=== PATIENT | female | born 2000 | race Caucasian/White ===

== ENCOUNTER 2025-03-14 21:33 | Emergency (ER) | payer OTHER, SELFPAY ==
[2025-03-14 21:35] VITALS: BP 136/81
[2025-03-14 22:18] VITALS: BP 114/68
[2025-03-14 22:30] VITALS: BMI 18.7
[2025-03-14 22:30] LABS: % Basophils 0.3 % (0-2); % Eosinophils 0.3 % (0-6); % Immature Granulocytes 0.3 % (0-0.5); % Lymphocytes 11.6 % (20.5-51.1); % Monocytes 4.4 % (1.7-9.3); % Neutrophils 83.1 % (42.2-75.2); Absolute Lymphocytes 1.4 10^3/uL (1.2-3.4); Absolute Monocytes 0.5 10^3/uL (0.1-0.6); Absolute Neutrophils 9.8 10^3/uL (1.4-6.5); Hematocrit 39.2 % (37.0-47.0); Hemoglobin 13.6 g/dL (12.0-16.0); Mean Corp Hgb Conc. 34.7 g/dL (33.0-37.0); Mean Corpuscular Hgb 29.5 pg (27.0-31.0); Mean Platelet Volume 9.6 fL (7.4-10.4); Nucleated Red Blood Cells % 0 %; Platelet Count 190 10^3/uL (130-400); Red Blood Cell Count 4.61 10^6/uL (4.20-5.40); Red Cell Dist. Width 12.2 % (11.5-14.5); White Blood Cell Count 11.7 10^3/uL (4.8-10.8)
[2025-03-14 22:37] LABS: HCG, Serum Qualitative Screen Negative
[2025-03-14 22:42] LABS: ALT (SGPT) 19 U/L (0-35); AST (SGOT) 21 U/L (14-36); Albumin 4.8 g/dl (3.5-5.0); Alkaline Phosphatase 51 U/L (38-126); Blood Urea Nitrogen 18 mg/dl (7-17); Calcium 9.4 mg/dl (8.4-10.2); Carbon Dioxide 24 mmol/L (22-30); Chloride 109 mmol/L (98-107); Estimated Creatinine Clearance 100 ml/min; Glucose 99 mg/dl (70-99); Sodium 143 mmol/L (135-145); Total Bilirubin 0.5 mg/dl (0.2-1.3); Total Protein 7.5 g/dl (6.3-8.2); eGFR > 60.00
--- NOTE | 2025-03-14 23:33 | ED.GENMED ---
History of Present Illness
General
Chief Complaint: Fever
Source: patient
Exam Limitations: none
Time Seen by Provider: 03/14/25 22:58
Nursing documentation reviewed up to this point in time: agreed with
History of Present Illness
History of Present Illness:
The patient is a 24-year-old female who complains of waking up with a fever this morning as well as body aches and a sore throat. Patient complains of swollen glands in her neck. Additionally, patient complains of right lower abdominal pain that
she describes as a constant ache and occasionally sharp. Patient reports she has been feeling this right lower abdominal pain for about 3 weeks. Patient also complains of right lower back pain. She denies increased frequency of urination and
burning when she urinates. She denies rash. She reports a mild headache. Patient reports she last took Tylenol many hours ago.
Past History
Past History
ED Past Medical History: None
ED Past Surgical History: None
Social History
Tobacco: Non-smoker
Alcohol: Other
Drug: None
Personal: Other
Living: other
Employment: Other
Family History
Family History: Other
Review of Systems
Review of Systems
Allergies reviewed?: Yes
All Other Systems: ROS reviewed and negative except as documented in HPI and ROS
Constitutional: Reports fever, fatigue and chills
EENT: Reports other (Sore throat)
Respiratory: Reports no symptoms
Cardiac: Reports no symptoms
ABD/GI: Reports abdominal pain and diarrhea
: Reports flank pain
Musculoskeletal: Reports other (Body aches)
Skin: Reports no symptoms
Neurological: Reports headache
Endocrine: Reports no symptoms
Hematologic/Lymphatic: Reports no symptoms
Psychiatric: Reports no symptoms
Phy Exam
Physical Exam
Physical Exam:
Physical Exam
General: No acute distress, nontoxic, flushed
Neck: supple. Mild cervical lymphadenopathy. No meningismus. Mild pharyngeal erythema, pus on left tonsil
Heart: s1/s2 regular rate and rhythm, no murmur. equal radial pulses.
Lungs: no acute respiratory distress. clear bilaterally
Abdomen: Soft, right lower quadrant tenderness. No rebound or guarding. No pulsatile mass, right lower flank tenderness
Neuro: alert and oriented. no focal neurological deficits
Skin: no rash
Psychiatric: well kept. interactive and cooperative
Extremities: no edema. no calf tenderness. negative homans. good distal pulses
Course
Orders/Labs/Results
Orders:
Orders
03/14/25 21:59
Test Result ONCE
03/14/25 22:16
Complete Blood Count/With Diff Urgent
Comprehensive Metabolic Panel Urgent
HCG, Serum Qualitative Screen Urgent
Monotest Urgent
Comment: ADD ON
03/14/25 23:32
0.9% Sodium Chloride 1000 ml [Nss] 1,000 ml IV BOLUS
Acetaminophen [Tylenol] 1,000 mg PO NOW STA
03/14/25 23:33
Add On- LAB Urgent
Tests Added?: monotest
03/14/25 23:34
Iohexol [Omnipaque] See Protocol PO NOW STA
03/14/25 23:57
COVID-19 Antigen Urgent
Source: Nasal Swab
Urinalysis Reflex To Culture Urgent
Date Specimen was Collected: 03/14/25
Time Specimen was Collected: 23:50
Influenza A+B Rapid Molecular Urgent
HERIBERTO Source: Nasal Swab
Specimen Description:
Rapid Strep Group A Urgent
HERIBERTO Source: Throat/Pharynx
Specimen Description:
Date Specimen was Collected: 03/14/25
Time Specimen was Collected: 23:45
03/15/25 00:04
CT Abd/pelvis W Iv Cont Urgent
Comment:
Reason For Exam: RLQ pain, fever
03/15/25 01:47
Penicillin V Potassium [Pen Vk] 500 mg PO NOW STA
Abnormal Lab Results
03/14/25
22:16
WBC 11.7 H 10^3/uL
(4.8-10.8)
Absolute Neuts (auto) 9.8 H 10^3/uL
(1.4-6.5)
Neutrophils % 83.1 H %
(42.2-75.2)
Lymphocytes % 11.6 L %
(20.5-51.1)
Chloride 109 H mmol/L
(98-107)
BUN 18 H mg/dl
(7-17)
03/14/25 22:16
03/14/25 22:16
Vital Signs
Initial and Last Documented VS:
Initial Vital Signs
Temp Pulse Resp BP Pulse Ox
99.2 F 104 20 136/81 99
03/14/25 21:35 03/14/25 21:35 03/14/25 21:35 03/14/25 21:35 03/14/25 21:35
Last Documented Vital Signs
Temp Pulse Resp BP Pulse Ox
99.2 F 102 16 114/68 100
03/14/25 21:35 03/14/25 22:18 03/14/25 22:18 03/14/25 22:18 03/14/25 22:18
MDM/Problems Addressed
Differential Diagnosis Includes:
Acute mononucleosis, acute appendicitis, ovarian cyst, strep pharyngitis
MDM/Problems Addressed:
Patient presents with acute fever, sore throat, body aches, right lower flank pain and right lower abdominal pain
*Radiology
Radiology exam reviewed: radiology read reviewed
*Pulse Oximetry
Patient hypoxic: no
Comment: Pulse ox is 99% on room air
*EKG
Interpreted by ED Provider?: NA
*Spanish Tutor Interpretation
Rate: Spanish Tutor- N/A
*Critical Care Note
Total Time (30-74mins, 75-104mins- exclusive of procedures): Not Applicable
Data Reviewed
Source: patient
Patient Management
Social determinants of health affecting care: Living situation and Strong social support
Escalation/DeEscalation of care consider admission/obs:
Patient adamantly refused oral contrast for the CAT scan. I explained to her that it will limit the study in terms of how much the radiologist can potentially see and diagnose. Patient reports she understands this. She does not want to wait the
extended amount of time for the oral contrast.
1:50 am Patient's CAT scan does not visualize the appendix. I explained to the patient that I cannot fully exclude acute appendicitis I discussed repeating the CAT scan with oral contrast. However, the patient reports that her right lower
abdominal pain is nearly gone and is not bothering her. She reports that it has been intermittent for several weeks. Therefore, it is very doubtful to be acute appendicitis. Patient told to return for any worsening right lower abdominal pain
because I explained to her could be a surgical emergency.
Given patient has fever, cervical lymphadenopathy, absence of cough and tonsils concerning for strep, decision made to treat her with an antibiotic for presumed strep pharyngitis
ED Attending Note
-
Portions of this chart may have been created with voice recognition software.� Occasional wrong word or��sound alike� substitutions may have occurred due to the inherent limitations of voice recognition software.
Discharge Plan
Departure
Patient Disposition: Home (Routine Discharge)
Date of Disposition: 03/15/25
Time of Disposition: 01:46
Patient with high blood pressure during this ER visit?: Yes
Condition: Good
Covid-19: Negative COVID-19
Discharge Problem:
Acute pharyngitis, Abdominal pain, right lower quadrant
Instructions: Abdominal pain in adults - ED discharge instructions, Sore throat in adults - ED discharge instructions
Prescriptions:
New
penicillin V potassium 500 mg tablet
500 mg PO BID Qty: 19 0RF
Referrals:
Lv,Mando S., DO [Family Provider, Family Practice]
Activity Restrictions/Additional Instructions:
Please return immediately if your right lower abdominal pain worsens
Interventions
Interventions:
*Risk Screen - Suicide Last Done: 03/14/25 22:30
*General Assessment Last Done: 03/14/25 21:35
*Neglect/Abuse Screening Last Done: 03/14/25 22:30
*ED- Fall Risk Assessment Last Done: 03/14/25 22:30
*ED COVID-19 Vaccine History Last Done: 03/14/25 22:30
ED- Neurological Assessment Last Done: 03/14/25 22:30
ED-Skin Assessment Last Done: 03/14/25 22:30
Discharge Date and Time
Print Language: MONGOLIAN
[2025-03-14] MEDS: NSS 1000 IV (23:52)
[2025-03-14] MEDS: TYLENOL 1000 MG PO (23:52)
[2025-03-15 00:12] LABS: Urine Albumin Negative (Neg - Trace); Urine Bilirubin Negative (Negative); Urine Character Clear (Clear); Urine Color Yellow; Urine Glucose Negative (Negative); Urine Ketone Negative (Negative); Urine Leukocyte Negative (Negative); Urine Nitrite Negative (Negative); Urine Occult Blood Negative (Negative); Urine Specific Gravity 1.015 (<1.030); Urine Urobilinogen Negative (Neg - 1+)
[2025-03-15 00:17] LABS: Monotest Negative (Negative)
[2025-03-15 00:21] LABS: COVID-19 Antigen Negative (Negative)
[2025-03-15] MEDS: PEN VK 500 MG PO (01:53)
[2025-03-15 01:55] VITALS: BP 102/55
== END 2025-03-15 02:01 | disposition home or self-care (01) ==
LOC: EMR 21:33
PROVIDERS: EMERGENCY PHYSICIAN Emergency Medicine; FAMILY PHYSICIAN Family Medicine
DX: J02.9 Acute pharyngitis, unspecified (principal); R10.31 Right lower quadrant pain
CPT/HCPCS: 99284; 74177; 80053; 81003; 84703; 85025; 86308; 87070; 87502; 87811; 87880; Q9967

== ENCOUNTER 2025-08-15 06:29 | Day surgery (SDC) | payer OTHER, SELFPAY ==
[2025-08-15 12:19] LABS: HCG, Urine Qualitative Screen Negative
== END 2025-08-15 14:35 | disposition home or self-care (01) ==
LOC: GI 06:29
PROVIDERS: ATTENDING PHYSICIAN Internal Medicine
DX: K52.9 Noninfective gastroenteritis and colitis, unspecified (principal); K62.5 Hemorrhage of anus and rectum; R10.30 Lower abdominal pain, unspecified; R09.A2 Foreign body sensation, throat; K31.89 Other diseases of stomach and duodenum; R10.13 Epigastric pain; K29.50 Unspecified chronic gastritis without bleeding; K22.70 Barrett's esophagus without dysplasia; K86.9 Disease of pancreas, unspecified
CPT/HCPCS: 45380; 43239; 81025; 88305; 88342